=== PATIENT | male | born 1985 | race Hispanic/Latino ===

== ENCOUNTER 2019-03-19 17:19 | Emergency (ER) | payer OTHER ==
[2019-03-19] MEDS ORDERED: LIDOCAINE 1% MPF 5 ML VIAL ONE (17:34)
[2019-03-19] MEDS ORDERED: TETANUS & DIPHTHERIA TOX,ADULT 0.5 ML VIAL ONE (18:01)
[2019-03-19] MEDS ORDERED: CEPHALEXIN 250 MG CAP ONE (18:07)
--- NOTE | 2019-03-19 18:31 | RAD REPORT ---
EXAM DESCRIPTION: RAD - Hand Left 3 View - 03/19/2019 6:17 pm CLINICAL HISTORY: SMASH INJURY COMPARISON: No comparisons FINDINGS: Comminuted fracture is seen involving the distal aspect of the proximal phalanx of the fir st digit.
--- NOTE | 2019-03-19 18:52 | ER ---
Nurse's Notes [facility] Name: Florian Drew Jr Age: 33 yrs Sex: Male : 1985 Arrival Date: 03/19/2019 Time: 17:20 Bed 8 Private MD: Diagnosis: Displaced fracture of proximal phalanx of left thumb Presentation: 03/19 17:25 Presenting complaint: Patient states: a tire slid off while I was changing it and ch crushed my L thumb. I can feel it and move it but it hurts. Transition of care: patient was not received from another setting of care. Complicating Factors: crush. Onset of symptoms was March 19, 2019 at 16:50. Risk Assessment: Do you want to hurt yourself or someone else? Patient reports no desire to harm self or others. Initial Sepsis Screen: Does the patient meet any 2 criteria? No. Patient's initial sepsis screen is negative. Does the patient have a suspected source of infection? No. Patient's initial sepsis screen is negative. Care prior to arrival: None. 17:25 Method Of Arrival: Ambulatory 17:25 Acuity: TEODORO 3 ch Triage Assessment: 17:27 General: Appears in no apparent distress. uncomfortable, Behavior is calm, cooperative, ch appropriate for age. Pain: Complains of pain in dorsal aspect of distal phalanx of left thumb, dorsal aspect of proximal phalanx of left thumb, palmar aspect of distal phalanx of left thumb and palmar aspect of proximal phalanx of left thumb Pain currently is 9 out of 10 on a pain scale. Neuro: No deficits noted. Injury Description: Crush injury sustained to dorsal aspect of distal phalanx of left thumb, dorsal aspect of proximal phalanx of left thumb, palmar aspect of distal phalanx of left thumb and palmar aspect of proximal phalanx of left thumb is macerated. Historical: - Allergies: 17:27 No Known Allergies; ch - Home Meds: 17:27 Metformin Oral [Active]; ch - PMHx: 17:27 Diabetes - IDDM; ch - PSHx: 17:27 None; ch - Immunization history:: Adult Immunizations up to date, Last tetanus immunization: up to date. - Social history:: Smoking status: Patient uses tobacco products, denies chronic smoking, but will smoke occasionally. - Ebola Screening: : Patient negative for fever greater than or equal to 101.5 degrees Fahrenheit, and additional compatible Ebola Virus Disease symptoms Patient denies exposure to infectious person Patient denies travel to an Ebola-affected area in the 21 days before illness onset No symptoms or risks identified at this time. Screenin:35 Abuse screen: Denies threats or abuse. Nutritional screening: No deficits noted. aa5 Tuberculosis screening: No symptoms or risk factors identified. Fall Risk None identified. Assessment: 17:35 General: Appears comfortable, Behavior is calm, cooperative. Pain: Complains of pain in aa5 left thumb Pain does not radiate. Pain currently is 9 out of 10 on a pain scale. Quality of pain is described as throbbing, Is continuous. Neuro: Level of Consciousness is awake, alert, obeys commands, Oriented to person, place, time, situation. Cardiovascular: Heart tones S1 S2 present Rhythm is regular. Respiratory: Airway is patent Respiratory effort is even, unlabored, Respiratory pattern is regular, symmetrical. GI: No signs and/or symptoms were reported involving the gastrointestinal system. : No signs and/or symptoms were reported regarding the genitourinary system. EENT: No signs and/or symptoms were reported regarding the EENT system. Derm: Skin is pink, warm \T\ dry. Musculoskeletal: Range of motion: intact in all extremities. Injury Description: Laceration sustained to dorsal aspect of left thumb and palmar aspect of left thumb. Lacerations are U-shaped and measure approximately 1 in long, no active bleeding noted. Dressing applied. 18:15 Reassessment: Patient is alert, oriented x 3, equal unlabored respirations, skin aa5 warm/dry/pink. Patient denies pain at this time. 18:51 Reassessment: Dressing applied to left thumb, gauze, kerlix, and tape per FULL STACK WEB DEVELOPER. . aa5 18:51 Reassessment: Patient is alert, oriented x 3, equal unlabored respirations, skin aa5 warm/dry/pink. Vital Signs: 17:27 BP 142 / 93; Pulse 98; Resp 16; Temp 98.5; Pulse Ox 99% on R/A; Weight 99.79 kg; Height ch 5 ft. 8 in. (172.72 cm); Pain 9/10; 17:27 Body Mass Index 33.45 (99.79 kg, 172.72 cm) ED Course: 17:20 Patient arrived in ED. as 17:24 Aimee Sykes, RN is Primary Nurse. aa5 17:25 Kenya Beal [facility]-C [facility]. kb 17:25 Mahesh De Leon MD is Attending Physician. kb 17:26 Triage completed. 17:27 Arm band placed on left wrist. Patient placed in an exam room, on a stretcher. 17:35 Patient has correct armband on for positive identification. Bed in low position. Call aa5 light in reach. Side rails up X 1. 18:12 X-ray completed. Portable x-ray completed in exam room. Patient tolerated procedure mh1 well. 18:18 XRAY Hand LEFT 3 View In Process Unspecified. EDMS 18:55 No provider procedures requiring assistance completed. Patient did not have IV access aa5 during this emergency room visit. Administered Medications: 17:52 Drug: Lidocaine (1 %) 1 vials {Note: administered to left thumb by FULL STACK WEB DEVELOPER.} Volume: 5 ml; aa5 Route: Infiltration; 17:52 Drug: Bupivacaine (0.5 %) 1 vials {Note: administered by FULL STACK WEB DEVELOPER to left thumb .} Volume: 10 aa5 ml; Route: Infiltration; 18:15 Drug: Tetanus-Diphtheria Toxoid Adult 0.5 ml {Bisque Ware Dipper: [email or web address]. Exp: aa5 10/23/2020. Lot #: [id number]. } Route: IM; Site: right deltoid; 18:30 Follow up: Response: No adverse reaction aa5 18:15 Drug: KeFLEX 500 mg Route: PO; aa5 18:30 Follow up: Response: No adverse reaction aa5 Point of Care Testing: Blood Glucose: 17:57 Blood Glucose: 231 mg/dL; aa5 Ranges: Outcome: 18:51 Discharge ordered by . kb 18:55 Discharged to [facility] (Hand off program). aa5 18:55 Condition: stable 18:55 Instructed on need to continue care at [facility]. 18:57 Patient left the ED. aa5 Signatures: Dispatcher [employer] EDMS Kenya Beal FNP-C FNP-Suzi Cagle RN RN Nallely Garcias [facility] Asael, Jacquie as Sykes, Aimee, RN RN aa5
--- NOTE | 2019-03-19 18:53 | EDPHYS ---
Physician Documentation [facility] Name: Florian Drew Jr Age: 33 yrs Sex: Male : 1985 Arrival Date: 03/19/2019 Time: 17:20 Bed 8 Private MD: ED Physician Mahesh De Leon HPI: 03/19 18:01 This 33 yrs old Male presents to ER via Ambulatory with complaints of kb Laceration - Thumb. 18:03 The patient has a laceration related to: changing a tire and it fell occurred outdoors, kb and there are no complicating factors. The injury was accidental. The laceration(s) is(are) located on the palmar aspect of proximal phalanx of left thumb and dorsal aspect of proximal phalanx of left thumb. Onset: The symptoms/episode began/occurred just prior to arrival. Associated signs and symptoms: The patient has no apparent associated signs or symptoms. The patient has not experienced similar symptoms in the past. The patient has not recently seen a physician. Historical: - Allergies: 17:27 No Known Allergies; ch - Home Meds: 17:27 Metformin Oral [Active]; ch - PMHx: 17:27 Diabetes - IDDM; ch - PSHx: 17:27 None; ch - Immunization history:: Adult Immunizations up to date, Last tetanus immunization: up to date. - Social history:: Smoking status: Patient uses tobacco products, denies chronic smoking, but will smoke occasionally. - Ebola Screening: : Patient negative for fever greater than or equal to 101.5 degrees Fahrenheit, and additional compatible Ebola Virus Disease symptoms Patient denies exposure to infectious person Patient denies travel to an Ebola-affected area in the 21 days before illness onset No symptoms or risks identified at this time. ROS: 17:58 Constitutional: Negative for fever, chills, and weight loss, Cardiovascular: Negative kb for chest pain, palpitations, and edema, Respiratory: Negative for shortness of breath, cough, wheezing, and pleuritic chest pain, Abdomen/GI: Negative for abdominal pain, nausea, vomiting, diarrhea, and constipation, MS/Extremity: Negative for injury and deformity, Neuro: Negative for headache, weakness, numbness, tingling, and seizure. 17:58 Skin: Positive for laceration(s), of the dorsal aspect of proximal phalanx of left thumb and palmar aspect of proximal phalanx of left thumb. Exam: 17:58 Constitutional: This is a well developed, well nourished patient who is awake, alert, kb and in no acute distress. Head/Face: Normocephalic, atraumatic. Chest/axilla: Normal chest wall appearance and motion. Nontender with no deformity. No lesions are appreciated. Cardiovascular: Regular rate and rhythm with a normal S1 and S2. No gallops, murmurs, or rubs. Normal PMI, no JVD. No pulse deficits. Respiratory: Lungs have equal breath sounds bilaterally, clear to auscultation and percussion. No rales, rhonchi or wheezes noted. No increased work of breathing, no retractions or nasal flaring. Abdomen/GI: Soft, non-tender, with normal bowel sounds. No distension or tympany. No guarding or rebound. No evidence of tenderness throughout. MS/ Extremity: Pulses equal, no cyanosis. Neurovascular intact. Full, normal range of motion. Neuro: Awake and alert, GCS 15, oriented to person, place, time, and situation. Cranial nerves II-XII grossly intact. Motor strength 5/5 in all extremities. Sensory grossly intact. Cerebellar exam normal. Normal gait. 17:58 Skin: injury, laceration(s), the wound is approximately 3 cm(s), of the palmar aspect of proximal phalanx of left thumb and dorsal aspect of proximal phalanx of left thumb, that can be described as clean, no foreign body, irregular, through and through, without bleeding. Vital Signs: 17:27 BP 142 / 93; Pulse 98; Resp 16; Temp 98.5; Pulse Ox 99% on R/A; Weight 99.79 kg; Height ch 5 ft. 8 in. (172.72 cm); Pain 9/10; 17:27 Body Mass Index 33.45 (99.79 kg, 172.72 cm) Procedures: 17:52 Nerve block: (digital) of dorsal aspect of proximal phalanx of left thumb Medication: candy Lidocaine 1% with epinephrine, Marcaine 0.5%, Amount: 6 mls were injected, Effect: the patient has resolution of the pain, Set up for procedure. Performed by Kenya SMITH Patient tolerated well. MDM: 17:25 Patient medically screened. kb 18:01 Data reviewed: vital signs, nurses notes. Data interpreted: Pulse oximetry: on room air kb is 99 %. Interpretation: normal. 18:54 Counseling: I had a detailed discussion with the patient and/or guardian regarding: the kb historical points, exam findings, and any diagnostic results supporting the discharge/admit diagnosis, radiology results, the need for outpatient follow up, a hand specialist, to return to the emergency department if symptoms worsen or persist or if there are any questions or concerns that arise at home. ED course: Called Dr Brandin Banuelos's Hand Off service for consult. Dr Winn will see pt now for surgical washout and repair. Request a bulky dressing be placed on finger, do not repair laceration and send pt to [facility]. Pt to be registered by Emergency room registration and directed from there. . 03/19 17:32 Order name: XRAY Hand LEFT 3 View; Complete Time: 18:38 aa5 03/19 17:52 Order name: Prolene, Sutures; Complete Time: 17:57 kb 03/19 17:52 Order name: Dressing - Wound; Complete Time: 18:50 kb 03/19 17:52 Order name: Gloves, Sterile; Complete Time: 17:57 kb 03/19 17:52 Order name: Setup Suture Tray; Complete Time: 17:57 kb 03/19 17:52 Order name: Blood Glucose Level; Complete Time: 17:57 kb Administered Medications: 17:52 Drug: Lidocaine (1 %) 1 vials {Note: administered to left thumb by GAS LINE INSTALLER SUPERVISOR.} Volume: 5 ml; aa5 Route: Infiltration; 17:52 Drug: Bupivacaine (0.5 %) 1 vials {Note: administered by GAS LINE INSTALLER SUPERVISOR to left thumb .} Volume: 10 aa5 ml; Route: Infiltration; 18:15 Drug: Tetanus-Diphtheria Toxoid Adult 0.5 ml {Internship Coordinator: [email or web address]. Exp: aa5 10/23/2020. Lot #: [id number]. } Route: IM; Site: right deltoid; 18:30 Follow up: Response: No adverse reaction aa5 18:15 Drug: KeFLEX 500 mg Route: PO; aa5 18:30 Follow up: Response: No adverse reaction aa5 Point of Care Testing: Blood Glucose: 17:57 Blood Glucose: 231 mg/dL; aa5 Ranges: Critical Glucose Levels:Adult <50 mg/dl or >400 mg/dl <40 mg/dl or >180 mg/dl Disposition: 19:02 Co-signature as Attending Physician, Mahesh De Leon MD. rn Disposition: 03/19/19 18:51 Discharged to Home. Impression: Displaced fracture of proximal phalanx of left thumb. - Condition is Stable. - Discharge Instructions: Thumb Fracture. - Medication Reconciliation Form, Thank You Letter, Antibiotic Education, Prescription Opioid Use form. - Follow up: Emergency Department; When: As needed; Reason: Worsening of condition. Follow up: Private Physician; When: 2 - 3 days; Reason: Recheck today's complaints, Continuance of care, Re-evaluation by your physician. - Notes: Go To [facility] as discussed Try to be there by 8:30 Signatures: Dispatcher [employer] EDKenya Painter, CANCER CENTER DIRECTOR-C CANCER CENTER DIRECTOR-CkSuzi Hatch, RN RN Mahesh Urena MD MD rn Calderon, Audri, RN RN aa5 Corrections: (The following items were deleted from the chart) 18:57 18:51 03/19/2019 18:51 Discharged to Home. Impression: Displaced fracture of proximal aa5 phalanx of left thumb. Condition is Stable. Forms are Medication Reconciliation Form, Thank You Letter, Antibiotic Education, Prescription Opioid Use. Follow up: Emergency Department; When: As needed; Reason: Worsening of condition. Follow up: Private Physician; When: 2 - 3 days; Reason: Recheck today's complaints, Continuance of care, Re-evaluation by your physician. kb
== END 2019-03-19 18:57 | disposition home or self-care (01) ==
LOC: ER 17:19
DX: S62.512A Displaced fracture of proximal phalanx of left thumb, initial encounter for closed fracture (principal); W22.8XXA Striking against or struck by other objects, initial encounter; Y93.89 Activity, other specified; Y92.89 Other specified places as the place of occurrence of the external cause; Z23 Encounter for immunization; Z72.0 Tobacco use; E11.9 Type 2 diabetes mellitus without complications
CPT/HCPCS: 64450; 82962; 90471; 90714; 99283